=== PATIENT | female | born 1970 | race Caucasian/White ===

== ENCOUNTER 2017-06-11 09:26 | Emergency (ER) | payer MEDICAID ==
[~2017-06-11] VITALS: Ht 175.3 cm; Wt 68.0 kg
[2017-06-11 09:29] VITALS: BP 99/56; PULSE 113; RESP 22; TEMP 98.5; O2SAT 99
--- NOTE | 2017-06-11 09:59 | PD ---
Physical Exam Time Seen by Provider: 09:56 Narrative 47yo F c/o left hip pain that radiates down her left left. Seen at [facility] 3-[address] scan of abdomen and was told was fine. Being treated for UTI with Macrodantin. Butch encopresis, incontinence. No fever, vomiting. Patient seen in triage. Awaiting bed placement. See next providers note for final patient disposition. Data Data Last Documented VS Vital Signs Date Time Temp Pulse Resp B/P (MAP) Pulse Ox O2 Delivery O2 Flow Rate FiO2 06/11/17 09:29 98.5 113 22 99/56 (70) 99 Room Air MDM Supervised Visit with ILEANA: Ivis Briggs Jun 11, 2017 09:59
[2017-06-11] MEDS ORDERED: ROBA500T PO (11:12)
[2017-06-11] MEDS ORDERED: MEDR4PAK PO (11:12)
[2017-06-11] MEDS ORDERED: IBUP1TAB7 PO (11:12)
[2017-06-11] MEDS ORDERED: ACETAMINOPHEN/HYDROcodone 325 MG/5 MG TAB PO ONE (11:15)
[2017-06-11] MEDS ORDERED: methylPREDNISolone SOD SUCC 125 MG/2 ML VIAL IM ONE (11:15)
[2017-06-11] MEDS ORDERED: ORPHENADRINE INJ 60 MG/2 ML AMP IM ONE (11:15)
--- NOTE | 2017-06-11 11:16 | PD ---
HPI Chief Complaint: Pain: Acute or Chronic Time Seen by Provider: 11:02 Travel History International Travel<30 days: No Contact w/Intl Traveler<30days: No Traveled to known affect area: No History of Present Illness HPI 47y female presents to the ED c/o left sided back pain that radiates down to left kneecap. State she was getting dressed about 1 week ago and felt a 'twinge ' in her back as she was stepping through her pant leg. She has been able to perform her daily activities however it progressively worsened throughout the week. Says she went to [facility] for eval 3 days ago and they dx her with UTI. Patient states that her pain is moderate, aching, and constant. She has radiation of pain down to her left knee and thigh. Denies numbness or tingling. She denies trauma. Denies history of IV drug use, fever, chills, loss of bowel or bladder function, saddle anesthesia. PFSH Past Medical History Medical History: Denies Significant Hx ?: Not LMP: 06/05/17 Tubal Ligation: Yes Social History Alcohol Use: No Tobacco Use: Yes (pack a day ) Substance Use: No Allergies-Medications (Allergen,Severity, Reaction): Coded Allergies: prochlorperazine (Verified Allergy, Unknown, 06/11/17) Reported Meds & Prescriptions Reported Meds & Active Scripts Active Ibuprofen 800 Mg Tab 800 Mg PO TID 5 Days Use sparingly, as needed for severe pain. Robaxin (Methocarbamol) 500 Mg Tab 500 Mg PO TID 5 Days Medrol Dosepak (Methylprednisolone) 4 Mg Dspk 4 Mg PO DIRECTED Per Pharmacist direction Review of Systems Except as stated in HPI: all other systems reviewed are Neg Physical Exam Narrative GENERAL: Well-developed well-nourished in mild distress SKIN: Focused skin assessment warm/dry. HEAD: Atraumatic. Normocephalic. EYES: Pupils equal and round. No scleral icterus. No injection or drainage. ENT: No nasal bleeding or discharge. Mucous membranes pink and moist. NECK: Trachea midline. No JVD. MUSCULOSKELETAL: No obvious deformities. No clubbing. No cyanosis. No edema. Left glute- significant muscle spasm with tenderness palpation. Patient reluctant to perform flexion at the hip secondary to pain. Grade 5 out of 5 strength in ankle flexion and extension. DTRs intact BACK: No CVA tenderness. No rash. No point tenderness on palpation of the spine. NEUROLOGICAL: Awake and alert. No obvious cranial nerve deficits. Motor grossly within normal limits. Normal speech. PSYCHIATRIC: Appropriate mood and affect; insight and judgment normal. Data Data Last Documented VS Vital Signs Date Time Temp Pulse Resp B/P (MAP) Pulse Ox O2 Delivery O2 Flow Rate FiO2 06/11/17 11:46 06/11/17 09:29 98.5 113 22 99 Room Air Orders Orders Methylprednisolone So Succ Inj (Solumedr (06/11/17 11:15) Orphenadrine Inj (Norflex Inj) (06/11/17 11:15) Acetamin-Hydrocod 325-5 Mg ([place] 5-325 (06/11/17 11:15) Ed Discharge Order (06/11/17 11:35) [facility] Medical Decision Making Medical Screen Exam Complete: Yes Emergency Medical Condition: Yes Differential Diagnosis Left sciatica pain, muscle spasm, lumbago Narrative Course 47y female presents to the ED c/o left sided back pain that radiates down to left kneecap. State she was getting dressed about 1 week ago and felt a 'twinge ' in her back as she was stepping through her pant leg. She has been able to perform her daily activities however it progressively worsened throughout the week. Says she went to [facility] for eval 3 days ago and they dx her with UTI. Patient states that her pain is moderate, aching, and constant. She has radiation of pain down to her left knee and thigh. Denies numbness or tingling. She denies trauma. Denies history of IV drug use, fever, chills, loss of bowel or bladder function, saddle anesthesia. Vital signs stable. Physical exam findings consistent with sciatica. No red flag symptoms or signs. Patient administered SoluMedrol, hydrocodone, and Norflex in the emergency department. Patient be discharged with ibuprofen, Robaxin, and prednisone. I advised the risks versus benefit of steroid use and use this medication sparingly. In addition these medications may cause drowsiness and advised to use caution. Patient strongly advised follow-up with her primary care physician for her condition. The recommended neurologist or pain management for control of her symptoms. Diagnosis Primary Impression: Sciatica of left side Referrals: Neurologist Pain Management Primary Care Physician Additional Instructions: Perform light stretches of the lower back and legs, and alternate heat and ice packs. If you develop increased pain, weakness, fever, chills, or bowel or bladder issues, return to the ED for further treatment and evaluation. Follow up with your primary care physician in 2-3 days. Scripts Ibuprofen (Ibuprofen) 800 Mg Tab 800 MG PO TID for Arthritis Pain for 5 Days, TAB 0 Refills Use sparingly, as needed for severe pain. Prov: Kat Erickson 06/11/17 Methocarbamol (Robaxin) 500 Mg Tab 500 MG PO TID for Muscle Spasm for 5 Days, TAB 0 Refills Prov: Kat Erickson 06/11/17 Methylprednisolone Dosepak (Medrol Dosepak) 4 Mg Dspk 4 MG PO DIRECTED, #1 DSPK 0 Refills Per Pharmacist direction Prov: Kat Erickson 06/11/17 Disposition: 01 DISCHARGE HOME Condition: Stable Kat Erickson Jun 11, 2017 11:16
== END 2017-06-11 11:59 | disposition home or self-care (01) ==
LOC: NEPK 09:26 → MERGE 09:26 → NEPK 11:59
DX: M54.32 Sciatica, left side (principal); F17.200 Nicotine dependence, unspecified, uncomplicated; Z88.8 Allergy status to other drugs, medicaments and biological substances; Z79.899 Other long term (current) drug therapy
CPT/HCPCS: 96372; 99284; J2360; J2930